=== PATIENT | female | born 1995 | race Caucasian/White ===

== ENCOUNTER 2017-10-01 18:02 | Outpatient (CLI) | payer OTHER ==
[~2017-10-01] VITALS: Ht 175.3 cm; Wt 102.1 kg
[2017-10-01 18:21] VITALS: BP 132/83; Ht 175.3 cm; Wt 102.1 kg
[2017-10-01] MEDS ORDERED: CETI-176 PO (19:23)
[2017-10-01] MEDS ORDERED: PREN-127 PO (19:23)
== END 2017-10-01 21:10 | disposition home or self-care (01) ==
LOC: OB 18:02 → UNDOADMOB 18:02 → OB 18:02 → INTOOBSV 18:02 → L&D 18:02 → UNDODISOB 21:10 → L&D 21:10 → EDSTATUS 10-02 15:20
PROVIDERS: ATTEND Obstetrics & Gynecology
DX: O47.03 False labor before 37 completed weeks of gestation, third trimester (principal); Z3A.36 36 weeks gestation of pregnancy
CPT/HCPCS: 81001; 99213

== ENCOUNTER 2017-10-18 05:05 | Inpatient (IN) | payer OTHER ==
[~2017-10-18] VITALS: Ht 167.6 cm; Wt 102.1 kg
[~2017-10-18 05:05] MED LIST: CETI-176 PO; PREN-127 PO
[2017-10-18] MEDS ORDERED: FAMOTIDINE(*) 20MG/50ML PREMIX 50 ML IVPB PRN (05:07)
[2017-10-18] MEDS ORDERED: ceFAZolin(*) 2GM/D5W 50ML 50 ML IVPB PRN (05:07)
[2017-10-18] MEDS ORDERED: LR(*) 1000 ML BAG 1,000 ML IV SCH (05:07)
[2017-10-18] MEDS ORDERED: OXYTOCIN 30 UNIT/D5LR 500 ML 500 ML IV PRN ×2 (05:07→09:31)
[2017-10-18] MEDS ORDERED: fentaNYL CITR 100 MCG/2 ML AMP IVP PRN ×2 (05:10→09:35)
[2017-10-18] MEDS ORDERED: FLUSH 10 ML SYR IVP PRN (05:10)
[2017-10-18] MEDS ORDERED: METOCLOPRAMIDE 10 MG/2 ML SDV IVP PRN (05:10)
[2017-10-18] MEDS ORDERED: LIDOCAINE 1% LOCAL 300 MG/30ML INJ PRN (05:10)
[2017-10-18] MEDS ORDERED: LIDOCAINE/SOD BICARB 8.4% SYR SC PRN (05:10)
[2017-10-18 06:07] LABS: PLATELET COUNT, AUTOMATED 199 K/uL (150-450)
[2017-10-18 07:12] VITALS: BP 134/81; Ht 167.6 cm; Wt 102.1 kg
[2017-10-18] MEDS ORDERED: DLR(*) 1000 ML BAG 1,000 ML IV SCH (09:31)
[2017-10-18] MEDS ORDERED: cefOXitin/DEX(*) 2GM/50ML PREM 50 ML IVPB PRN (09:35)
[2017-10-18] MEDS ORDERED: TERBUTALINE SULF 1 MG/ML VIAL SUBQ PRN (09:35)
[2017-10-18] MEDS ORDERED: fentaNYL CITR 100 MCG/2 ML AMP IT PRN (09:40)
[2017-10-18] MEDS ORDERED: ONDANSETRON 4 MG/2 ML VIAL IVP PRN (09:40)
[2017-10-18] MEDS ORDERED: FENTANYL/ROPIVACAINE 100 ML BAG EPI PRN (09:40)
[2017-10-18] MEDS ORDERED: BUPIVACAINE 0.5% INJ 30ML VIAL EPI PRN (09:40)
[2017-10-18] MEDS ORDERED: LIDOCAINE/PF 2% 200MG/10ML AMP 200 MG/10 ML AMPUL EPI PRN (09:40)
[2017-10-18] MEDS ORDERED: BUPIVACAINE 0.25% MPF INJ EPI PRN (09:40)
[2017-10-18] MEDS ORDERED: LIDO/EPI 2% MPF 1:200,000 20ML EPI PRN (09:40)
[2017-10-18] MEDS ORDERED: ePHEDrine 25 MG/5 ML DISP.SYR IVP PRN (09:40)
[2017-10-18] MEDS ORDERED: EPIDURAL KEYS XX PRN (12:00)
[2017-10-18] MEDS ORDERED: LANOLIN OINT 7 GM TUBE TP PRN (18:40)
[2017-10-18] MEDS ORDERED: HYDROCORTISONE 2.5% CR 30GM TB PR PRN (18:40)
[2017-10-18] MEDS ORDERED: ACETAMINOPHEN 325 MG TAB PO PRN (18:40)
[2017-10-18] MEDS ORDERED: INFLUENZA VIRUS VAC 0.5 ML SYR IM ONLY ONE (18:40)
[2017-10-18] MEDS ORDERED: MAGNESIUM HYDROXIDE* 30ML UDCP PO PRN (18:40)
[2017-10-18] MEDS ORDERED: BENZOCAINE 20% 60 ML BTL TP PRN (18:40)
[2017-10-18] MEDS ORDERED: APAP/HYDROCODONE 325/7.5 TAB PO PRN (18:40)
[2017-10-18] MEDS ORDERED: GLYCERIN/WITCH HAZEL LEAF 1 PK TP PRN (18:40)
--- NOTE | 2017-10-18 18:43 | History & Physical ---
History of Present Illness Age of Patient: 22 : 1 Para or TPAL: 0 EDC per LMP: Oct 23, 2017 Estimated Gestational Age: 39 Chief Complaint IOL History of Present Illness Presents for scheduled elective IOL at term. No complications or issues with this . Pt is AB pos and GBS negative. Past Medical, Surgical, Family and Obstetric Histories reviewed. Please see ACOG chart. History Allergies: Coded Allergies: No Known Drug Allergies (Unverified , 10/18/17) Med Rec Home Meds Reported Medications Vits W-Ca,Fe,Fa(<1MG) ( VITAMINS) 1 Each Tablet, 1 EACH PO DAILY, TAB 10/01/17 Cetirizine Hcl (ZYRTEC) 10 Mg Tablet, 10 MG PO QDAY, TAB 10/01/17 Review of Systems All Systems Reviewed/Normal: Yes, Except as Noted Exam General Exam Vital Signs Vital Signs Date Time Temp Pulse Resp B/P (MAP) Pulse Ox O2 Delivery O2 Flow Rate FiO2 10/18/17 07:12 119 15 134/81 (98) 96 Room Air General Apperance: Alert/Awake/No Acute Distress Neuro: No Gross deficits Cardiovascular: Regular Rate and Rhythm Respiratory: No Respiratory Distress Abdomen: Soft, Non-Tender, Non-Distended, Gravid - Non-Tender Psychological: Alert & Oriented X3, Appropriate Mood & Affect Cervical Dialation: 3 Cervical Effacement (%): 80 Cervical Consistency: Soft Cervical Position: Mid Station: -2 Presentation: Vertex Fetus Heart Tone Variabilty: Moderate FHT Accelerations: 15X15 FHT Category: I Medical Decision Making Data Points Result Diagram: 10/18/17 0548 VTE Prophylasis: Adult Deep Vein Thrombosis/Pulmonary: No Pharmacological Contraindicati: Pt at Low Risk for VTE Mechanical Contraindications: Pt at Low Risk for VTE 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 Pt understands risks and benefits as explained. No questions. ALON CAMPOS MD Oct 18, 2017 18:43
--- NOTE | 2017-10-18 18:49 | OB Delivery Note ---
Delivery Note Vaginal Delivery Type: Spont. Vaginal Delivery Delivery Date: Oct 18, 2017 Delivery Time: 18:01 Estimated Gestational Age(wks): 39.3 Delivery Anesthesia: Epidural Sex: Male Apgars: 1 Minute (8), 5 Minute (9) Repair Needed: Laceration, Vaginal, Labial, 2nd Degree Estimated Blood Loss: 500 Delivery Complications: Hemorrhage, Laceration Notes: Presented for IOL as planned. Pitocin titrated to contraction frequency and strength. Was 3 cm on admission and progressed to 5 cm by 1504. SROM at 1130. Epidural placed at 1300. Pt was 10cm and +1 station by 1654 when started pushing. Effective pushing and brought baby to station in PHILOMENA position. Delivered over second degree laceration with right vaginal extension and left labia laceration. Placenta delivered intact and spontaneous with a large gush of blood. Pitocin infused rapidly IV. It took some time to perform a complex repair of the perineum, vagina and labia left which accounted for the blood loss. No further complications following successful repair. Gift Shop Manager in Attendence: No Copies to: ALON CAMPOS MD, TRAVIS MD Oct 18, 2017 18:49
[2017-10-18] MEDS: DOCUSATE CALCIUM 240 MG CAP PO SCH (21:07)
[2017-10-18] MEDS: IBUPROFEN 800 MG TAB PO SCH (21:08)
[2017-10-18 23:30] VITALS: BP 130/68
[2017-10-19 03:00] VITALS: BP 118/60
[2017-10-19] MEDS: DOCUSATE CALCIUM 240 MG CAP PO SCH (07:59)
[2017-10-19] MEDS: IBUPROFEN 800 MG TAB PO SCH (07:59)
--- NOTE | 2017-10-19 08:35 | OB/GYN Progress Note ---
OB Subjective Progress Notes Subjective Doing well. Pain controlled and ambulating. Voiding well. 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
[2017-10-19] MEDS ORDERED: IBUP800T37 PO (08:36)
[2017-10-19] MEDS ORDERED: Acetaminophen/Hydrocodone PO (08:36)
--- NOTE | 2017-10-19 08:38 | OB/GYN Discharge Summary ---
Discharge Summary Reason for Hosp/Final Diag: (1) 39 weeks gestation of [place] Vital Signs Vital Signs Date Time Temp Pulse Resp B/P (MAP) Pulse Ox O2 Delivery O2 Flow Rate FiO2 10/19/17 03:00 97.6 105 16 118/60 (79) 94 Room Air Weight (Pounds): 225 Result Diagram: 10/19/17 0630 Condition: Improved Discharge: Home, Self Assisted Meds Active Scripts [Apap/Hydrocodone 325/7.5 Tab] 7.5 MG/325 MG TAB No Conflict Check, 1-2 EACH PO Q4-6H Y for PAIN, #14 TAB 0 Refills Prov:RYAN BATRES MD 10/19/17 Reported Medications Vits W-Ca,Fe,Fa(<1MG) ( VITAMINS) 1 Each Tablet, 1 EACH PO DAILY, TAB 10/01/17 Cetirizine Hcl (ZYRTEC) 10 Mg Tablet, 10 MG PO QDAY, TAB 10/01/17 Follow up Referrals: PRODUCTION RECORDER - In 6 Weeks @ [facility] with Ryan Batres Md Follow up with: Dr. Batres [phone] Follow up in: 6 wks PP or PO Discharge Diet: As Tolerates Discharge Activity: As Tolerates, No Heavy Lifting x 6 wks, No Heavy Lifting > 10lb, Pelvic Rest Copies to: RYAN BATRES MD, TRAVIS MD Oct 19, 2017 08:38
[2017-10-19 09:00] VITALS: BP 126/69
[2017-10-19 13:30] VITALS: BP 125/68
--- NOTE | 2017-10-19 13:38 | Anesthesia OB Pre-Anes Eval ---
History of Present Illness Anesthesia Start Date: Oct 18, 2017 Anesthesia Start Time: 12:30 OB Anesthesia Diagnosis: induction - elective, spontaneous ROM Current Complication: obesity EDC: Oct 23, 2017 : 1 Para: 0 Pain Ratin Result Diagram: 10/18/17 0548 Height (Inches): 66.00 Weight (Pounds): 225 BMI Calculated: 36.31 Past Medical History Medical History: no pertinent history Surgical History: noncontributory Previous Anesthesia: general Attended Childbirth Classes?: Yes, Attended [employer] Lecture (yes) Hx Anesthesia Reactions: No Hx Family Anesthesia Reaction: No Home Meds Active Scripts [Apap/Hydrocodone 325/7.5 Tab] 7.5 MG/325 MG TAB No Conflict Check, 1-2 EACH PO Q4-6H Y for PAIN, #14 TAB 0 Refills Prov:ALON CAMPOS MD 10/19/17 Reported Medications Vits W-Ca,Fe,Fa(<1MG) ( VITAMINS) 1 Each Tablet, 1 EACH PO DAILY, TAB 10/01/17 Cetirizine Hcl (ZYRTEC) 10 Mg Tablet, 10 MG PO QDAY, TAB 10/01/17 Allergies: Coded Allergies: No Known Drug Allergies (Unverified , 10/18/17) Anesthesia OB ROS Airway Class: l GI ROS: clear liquids, ice chips Last Solids Date: Oct 18, 2017 Last Solids Time: 04:00 ASA Classification: 2 Assessment and Plan Anesthesia Plan: LEB Anesthesia Stop Day: Oct 18, 2017 Anesthesia Stop Time: 18:30 Epidural Catheter Removal: Removed by: (Removed by RN following delivery, no reported complications.) NAZARIO JUDD CRNA Oct 18, 2017 14:03
--- NOTE | 2017-10-19 13:41 | Procedure Note ---
Anesthetic Placement Note Anesthesia Plan: LEB Permit for Anesthesia Signed: Yes Anesthesia Technique: Patient Sitting Anesthesia Prep: Betadine Interspace: L 3-4 Local Anesthetic: 1% Lidocaine, 25 Gauge Needle Amount Local - cc's: 5 Anesthesia Needle: 17g Touhy/Schliff Anesthesia Attempts: 3 Loss of Resistance: Normal Saline Depth of AYESHA (cm): 8 Catheter Insertion (cm): 6 Catheter Type: Irwin - Spring Wound Epidural Dressing: Tegaderm, Tape, Adhesive [place] Anesthesia Tray: Lot Number ([id number]), Expiration Date (2018-11-07), Reference Number ([id number]) Comment: Midline approach L4-5, AYESHA 8cm, epicath threaded easily but heme present. Catheter W/D in 1cm increments, flushed to clear blood with NS, but blood still present at 2cm depth. Catheter W/D intact, clotted with blood. Next attempt L3 -4, AYESHA 8 cm, attempted SAB access with 27 ga sprotte, pt had paresthesia, needle W/D. Able to thread epicath easily, no heme, no paresthesia, negative aspiration. Test dose negative, sterile dressing, taped in place. Anesthesia Medications: Epidural Test Dose: 1.5 Lido/Epi (1:200,000), Dose - mL (3), Time (1311), Negative (no symptoms IV or IT injection.) Epidural Loading Dose: 0.2% Ropivicaine, With Fentanyl 2mcg/ml, Dose - ml ( 15ml in 5ml increments), Time (1317) Epidural Infusion: 0.2% Ropivicaine, With Fentanyl 2mcg/ml, Start Time: (1323) Epidural Pump Setting: Bolus Dose - mL (4), Lockout - Minutes (15), Maintenance Rate - mL/hr (10), Maximum per Hour - mL (26) Complications: On first attempt epicath entered blood vessel, paresthesia when attempting spinal portion of CSE. Comment: Initially after loading doses complete, pt reported more pronounced sensory/ motor block on Rt side. Positioned on Lt side, infusion started. 15 minutes later, pt reports block is more even, effective analgesia, VSS. NAZARIO JUDD CRNA Oct 18, 2017 14:15
--- NOTE | 2017-10-19 13:43 | Anesthesia Post Eval Note ---
Anesthesia Post Eval Note Alessia, afebrile. Pt able to participate in Eval: Yes Cardiovascular Status: Satisfactory Respiratory Status: Satisfactory Pain Managment: Satisfactory PO Nausea/Vomiting: Satisfactory Temperature Management: Satisfactory Mental Status: Satisfactory, Alert, Oriented X3 Post-Op Hydration Status: Satisfactory, Tolerating PO Well, Voiding w/o Difficulty Anesthesia Type: LEB Anesthesia Tolerance: KANNAN effective up to and through delivery. She had some lingering numbness/ tingling of toes on right foot, but that has resolved after ambulating today. No symptoms PDPH. NAZARIO JUDD ENVIRONMENTAL COMPLIANCE TECHNICIAN Oct 19, 2017 13:43
[2017-10-19] MEDS ORDERED: IBUPROFEN 800 MG TAB PO SCH (16:00)
[2017-10-19 17:10] VITALS: BP 145/79
[2017-10-19] MEDS ORDERED: MEASLES,MUMP,RUBELLA VAC 0.5ML SUBQ ONE (18:40)
[2017-10-19] MEDS ORDERED: DIPHTH/TETANUS/ACEL. PERTUSSIS IM ONLY ONE (18:40)
[2017-10-19 19:45] VITALS: BP 114/59
== END 2017-10-19 21:00 | disposition home or self-care (01) | DRG 774 ==
LOC: OB 05:05
PROVIDERS: ADMIT Obstetrics & Gynecology; ATTEND Obstetrics & Gynecology
PROC: 10E0XZZ Delivery of Products of Conception, External Approach (ICD-10-PCS; principal; 2017-10-18)
PROC: 0KQM0ZZ Repair Perineum Muscle, Open Approach (ICD-10-PCS; 2017-10-18)
PROC: 10907ZC Drainage of Amniotic Fluid, Therapeutic from Products of Conception, Via Natural or Artificial Opening (ICD-10-PCS; 2017-10-18)
PROC: 3E033VJ Introduction of Other Hormone into Peripheral Vein, Percutaneous Approach (ICD-10-PCS; 2017-10-18)
DX: O70.1 Second degree perineal laceration during delivery (principal); O67.8 Other intrapartum hemorrhage; Z37.0 Single live birth; Z3A.39 39 weeks gestation of pregnancy; Z23 Encounter for immunization
CPT/HCPCS: 36415; 85025; 85027; 86850; 86900; 86901; 90471; 90707; J3010; J7120; S0020

== ENCOUNTER → 2018-09-28 | Outpatient (CLI) | payer OTHER ==
[2017-10-18 07:12] VITALS: BMI 36.3
[~2018-09-28] MED LIST changes: +Acetaminophen/Hydrocodone PO; +IBUP800T37 PO
[2018-09-28 11:46] LABS: PLATELET COUNT, AUTOMATED 230 K/uL (150-450)
== END ==
LOC: LAB 08:12
PROVIDERS: ATTEND Obstetrics & Gynecology
DX: Z34.81 Encounter for supervision of other normal pregnancy, first trimester (principal)
CPT/HCPCS: 36415; 81001; 85025; 86592; 86703; 86762; 86850; 86900; 86901; 87088; 87340

== ENCOUNTER → 2018-10-08 | Outpatient (CLI) | payer OTHER ==
[2017-10-18 07:12] VITALS: BMI 36.3
== END ==
LOC: LAB 07:46
PROVIDERS: ATTEND Obstetrics & Gynecology
DX: Z34.01 Encounter for supervision of normal first pregnancy, first trimester (principal)
CPT/HCPCS: 87491; 87591